=== PATIENT | male | born 1990 | race Caucasian/White ===

== ENCOUNTER 2017-02-21 08:29 | Emergency (ER) | payer OTHER ==
[~2017-02-21] VITALS: Ht 182.9 cm; Wt 141.9 kg
[2017-02-21 08:41] VITALS: TEMP 36.7; Ht 182.9 cm; Wt 141.9 kg
[2017-02-21] MEDS ORDERED: OXYCODONE HCL IR 5 MG TAB (IMMEDIATE RELEASE) PO STA (09:48)
[2017-02-21] MEDS ORDERED: VENL150C PO (09:56)
[2017-02-21] MEDS ORDERED: CYCLOBENZAPRINE HCL 5 MG TAB PO SCH (10:00)
[2017-02-21] MEDS ORDERED: OXYC1TAB3 PO (11:23)
--- NOTE | 2017-02-21 11:25 | EMERGENCY ROOM VISIT NOTE ---
History First contact with patient: 09:09 Chief Complaint: SHOULDER PAIN Stated Complaint: LEFT SHOULDER/BACK PAIN History of Present Illness The patient is a 26 year old male who presents to the Emergency Room via private vehicle with complaints of "left shoulder/back pain". The patient states that while at work, he was lifting a frozen milk container with his left arm. He states that when he lifted up to put it on the back of the truck, he developed a sharp stabbing pain below his left shoulder blade. He rates the pain as a 15/10. He states that he took 1 Excedrin and now the pain is down to a 9/10. He denies any chest pain or shortness of breath at rest. He states that when the pain is worst it takes his breath away. He denies any abdominal pain. He denies any lower extremity weakness, bowel or bladder incontinence, numbness or tingling in genital region. Review of Systems A complete 6-point Review of Systems was discussed with the patient, with pertinent positives and negatives listed in the History of Present Illness. All remaining Review of Systems questions can be considered negative unless otherwise specified. Past Medical/Surgical History Lumbar spine herniated disc Family History No pertinent. Social History Smoking Status: Never Smoker Social History: Patient is employed and lives locally. Current/Historical Medications Scheduled Venlafaxine Hcl (Effexor Xr), 1 CAP PO DAILY Scheduled PRN Oxycodone Ir (Roxicodone Ir), 1-2 TAB PO Q4H PRN for Pain Allergies Coded Allergies: POLLEN (Unverified Allergy, Intermediate, SEASONAL ALLERGIES, 02/21/17) Physical Exam Vital Signs Date Time Temp Pulse Resp B/P (MAP) Pulse Ox O2 Delivery O2 Flow Rate FiO2 02/21/17 11:45 80 15 151/78 99 02/21/17 10:55 86 15 142/81 96 Room Air 02/21/17 10:04 83 16 145/88 98 Room Air 02/21/17 08:41 36.7 92 16 145/92 98 Room Air Physical Exam VITAL SIGNS - Vital signs and nursing notes were reviewed. Stable. GENERAL -26-year-old male appearing his stated age who is in no acute distress. Communicates well with provider and answers questions appropriately. SKIN - Without rashes. Skin overlying the back is unremarkable. HEAD - NC/AT. NECK - Neck with FROM. No C-spine tenderness. LUNGS - Chest wall symmetric without accessory muscle use, intercostals retractions, or central cyanosis. Normal vesicular breath sounds CTA B/L. No wheezes, rales, or rhonchi appreciated. CARDIAC - RRR with S1/S2. No murmur, rubs, or gallops appreciated. ABDOMEN - Abdominal contour without pulsations or visible masses. BS normoactive all four quadrants. No tenderness, palpable masses, hepatosplenomegaly, or ascites noted. MUSCULOSKELETAL: There is reproducible tenderness upon palpation of the left mid trapezius region. EXTREMITIES - No clubbing or peripheral cyanosis. No pretibial edema present. + 5/5 strength noted in UE/LE bilaterally. NEUROLOGIC - Cranial nerves II through XII grossly intact. Sensory intact to light touch throughout. Patellar reflexes +2/4. PSYCH - A&O and cooperates fully with examiner. Pt is very pleasant and interacts well with examiner. Medical Decision & Procedures Medications Administered Medications (Trade) Dose Ordered Sig/Isaias Route Start Time Stop Time Status Last Admin Dose Admin Oxycodone HCl (Roxicodone Immediate Rel Tab) 5 mg NOW STAT PO 02/21/17 09:48 02/21/17 09:49 DC 02/21/17 10:02 5 MG Cyclobenzaprine HCl (Flexeril Tab) 10 mg NOW PO 02/21/17 10:00 02/21/17 12:08 DC 02/21/17 10:02 10 MG Medical Decision Patient was seen and evaluated as above. After obtaining a thorough history and physical examination benefit versus risk of obtaining imaging was discussed with the patient. At this time there is been no trauma, and the pain is reproducible in the musculature. There is no bony tenderness. There are no neurovascular deficits. I believe that conservative management, with pain medication and muscle relaxants are most appropriate. He was given OxyIR, and Flexeril here. He is on Effexor, therefore caution we'll be exercised to minimize serotonin syndrome. He was provided these reevaluated, and his pain decreased to a 6. He is non-ill in appearance. I recommend he follows up with family doctor/Workmen's [employer]. He was given a short term supply of pain medication, but not muscle relaxer, as I do not want to increase risk of serotonin syndrome with both. He was educated upon worrisome symptoms which to return, had questions or discharge, and was discharged home in good condition. He is to find a family doctor that she feels comfortable doing so. In the evaluation and treatment this patient following differential diagnoses were entertained: Muscular skeletal strain, sprain, fracture, NH, PE, among others. COURT Drug Monitoring Program Search Results: patient reviewed within database, no issues identified Impression Primary Impression: Trapezius muscle strain Departure Information Dispostion Home / Self-Care Condition GOOD Prescriptions Oxycodone Ir (Roxicodone Ir) 5 Mg Tab 1-2 TAB PO Q4H Y for Pain, #15 TAB For Initial Treatment Prov: Homero Tafoya PA-C 02/21/17 Referrals No Doctor, Assigned (PCP) Patient Instructions My [facility] Additional Instructions You have been treated in the Emergency Department for Back Pain. You have received pain medicine in the emergency department which impairs your ability to operate a vehicle. It is illegal for you to drive after receiving these medicines. You have been prescribed Oxy IR to be used for pain control. This is a narcotic medication. You cannot drive or consume alcohol while on this medicine. This medicine should only be used for pain that cannot be controlled with over-the- counter pain medicines. For pain control, you can use the following lubl-khe-qhtrtyv medicines (if >12 yo): - Regular strength (325mg/tab) Tylenol (acetaminophen) 2 tabs every 4-6 hours as needed. Do not exceed 12 tablets in a 24 hour period. Avoid taking more than 3 grams (3000 mg) of Tylenol per day. This includes any other sources of acetaminophen you may take on a regular basis. - Regular strength (200 mg/tab) Advil (ibuprofen) 1-2 tabs every 4-6 hours as needed. Do not exceed a dose of 3200 mg per day. If this is an acute injury, ice can be applied to the area of pain for the first 3 days to help decrease pain and inflammation. After the first 3 days, a heating pad can be used over the area for continued soothing relief. You should schedule a follow-up appointment in 2-3 days with your Primary Care Provider for further evaluation and treatment of your back pain. Please also schedule follow up with your Workmen's Compensation individual. Please call them later today. Return to the Emergency Department if your current symptoms worsen despite treatment course outlined above, or if you develop any of the following symptoms : intractable pain despite aforementioned treatment course, loss of control of your bowel or bladder, numbness or tingling in your groin, or development of a fever. Please follow-up regarding your elevated blood pressure here today. Please call your family doctor for this. Please return to emergency department with any new/concerning symptoms.
[2017-02-21 11:45] VITALS: BP 151/78; PULSE 80; O2SAT 99
== END 2017-02-21 11:42 | disposition home or self-care (01) ==
LOC: C.EDB 08:33
DX: S46.812A Strain of other muscles, fascia and tendons at shoulder and upper arm level, left arm, initial encounter (principal); X50.1XXA Overexertion from prolonged static or awkward postures, initial encounter; Y92.89 Other specified places as the place of occurrence of the external cause; Y99.0 Civilian activity done for income or pay